=== PATIENT | male | born 1960 | race Caucasian/White ===

== ENCOUNTER 2025-01-15 11:34 | Emergency (ER) | payer BC, SELFPAY ==
[2025-01-15 11:34] VITALS: BP 174/82; PULSE 78; RESP 14; TEMP 36.2; O2SAT 97; BMI 35.2
--- NOTE | 2025-01-15 11:53 | RAD_ITS ---
PROCEDURE: ELBOW MIN 3 VIEWS 01/15/2025 REASON FOR EXAM: INJURY TECHNIQUE: Three views of the left elbow COMPARISON: There is no comparison FINDINGS: There is no fracture or dislocation. There is a 0.4 cm corticated osteochondral fragment in the anterior joint space. Soft tissue swelling is present over the olecranon, which can indicate bursitis. Mineralization is normal. There is no visible joint effusion. RAD/Elbow min 3 Views IMPRESSION: There is a 0.4 cm corticated osteochondral fragment in the anterior joint space . Soft tissue swelling is present over the olecranon, which can indicate bursitis . Reading Location: [facility]
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
--- NOTE | 2025-01-15 11:53 | RAD_ITS ---
PROCEDURE: SHOULDER MIN 2 VIEWS 01/15/2025 REASON FOR EXAM: INJURY TECHNIQUE: Four views of the left shoulder COMPARISON: None FINDINGS: The AC joint is widened to 1.1 cm, without subluxation, type 2 separation. 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 No acute fracture is seen. Mineralization is normal. RAD/Shoulder min 2 Views IMPRESSION: The AC joint is widened to 1.1 cm, without subluxation, type 2 separation. Reading Location: [facility]
[2025-01-15 13:26] VITALS: RESP 16
== END 2025-01-15 13:27 | disposition home or self-care (01) ==
PROVIDERS: Emergency Provider Emergency Medicine; PCP Family Medicine; Visit Provider Emergency Medicine
DX: S43.402A Unspecified sprain of left shoulder joint, initial encounter (principal); S50.02XA Contusion of left elbow, initial encounter; W19.XXXA Unspecified fall, initial encounter
CPT/HCPCS: 73030; 73080; 99282